=== PATIENT | female | born 1965 | race Caucasian/White ===

== ENCOUNTER 2018-06-06 07:17 | Day surgery (SDC) | payer OTHER ==
[~2018-06-06] VITALS: Ht 167.6 cm; Wt 99.8 kg
[2018-06-06] MEDS ORDERED: LEVSOD125 PO (07:52)
[2018-06-06] MEDS ORDERED: UNISOM25 MG PO (07:53)
[2018-06-06] MEDS ORDERED: ACYC400 PO (07:53)
[2018-06-06] MEDS ORDERED: SERT50 PO (07:53)
[2018-06-06] MEDS ORDERED: LISI20 PO (07:53)
[2018-06-06] MEDS ORDERED: CLOBETASOL PRO0.5 GM MC (07:54)
== END 2018-06-06 09:50 | disposition home or self-care (01) ==
LOC: ORSCSDS 07:17
PROVIDERS: Surgery
PROC: 0DBK8ZX Excision of Ascending Colon, Via Natural or Artificial Opening Endoscopic, Diagnostic (ICD-10-PCS; principal; 2018-06-06 08:30)
DX: Z12.11 Encounter for screening for malignant neoplasm of colon (principal); D12.2 Benign neoplasm of ascending colon; Z86.010 Personal history of colon polyps; Z80.0 Family history of malignant neoplasm of digestive organs; E03.9 Hypothyroidism, unspecified; I10 Essential (primary) hypertension; F32.9 Major depressive disorder, single episode, unspecified; G47.30 Sleep apnea, unspecified; Z79.899 Other long term (current) drug therapy
CPT/HCPCS: 88305; J7120

== ENCOUNTER → 2022-03-25 | Outpatient (CLI) | payer OTHER ==
[~2022-03-25] MED LIST: ACYC400 PO; CLOBETASOL PRO0.5 GM MC; LEVSOD125 PO; LISI20 PO; SERT50 PO; UNISOM25 MG PO
== END | disposition home or self-care (01) ==
LOC: LAB 16:58 → LAB SHORT 16:58
DX: N39.0 Urinary tract infection, site not specified (principal)
CPT/HCPCS: 87086

== ENCOUNTER 2024-11-06 12:57 | Day surgery (SDC) | payer OTHER ==
[2024-11-06] MEDS ORDERED: GLUTATHIONE RE500 MG PO (13:38)
[2024-11-06] MEDS ORDERED: Adipex-P37.5 M1 PO (13:39)
[2024-11-06] MEDS ORDERED: LEVOTHYROXINE200 MCG PO (13:39)
[2024-11-06] MEDS ORDERED: PROG100 PO (13:40)
[2024-11-06] MEDS ORDERED: propofoL 50 ML IV ONE (13:41)
--- NOTE | 2024-11-06 14:19 | NUR ---
11/06/24 1418 MICHAELA LOYA CASE CXD PER AND CAROLANN. D/T CARDIAC NEW BBB. END NOTE RDS
== END 2024-11-06 14:20 | disposition home or self-care (01) ==
LOC: ORSCSDS 12:57
DX: Z80.0 Family history of malignant neoplasm of digestive organs (principal); Z53.9 Procedure and treatment not carried out, unspecified reason
CPT/HCPCS: 93005; 93010; J2704

== ENCOUNTER 2025-05-15 06:41 | Day surgery (SDC) | payer OTHER ==
[~2025-05-15] VITALS: Ht 165.1 cm; Wt 74.9 kg
[~2025-05-15 06:41] MED LIST changes: +ASHWAGANDHA PO; +Adipex-P37.5 M1 PO; +COLLAGEN SKIN1 EACH PO; +CYCL10 PO; +DHEA 2525 MG PO; +DIGESTIVE WELL1 EACH PO; +DIM PO; +FISH OIL 1,0001 EA10 PO; +GALZIN50 MG PO; +GLUTATHIONE RE500 MG PO; +HYDCHL25 PO; +HYDPAM25 PO; +L-Glutamine500 MG PO; +L-THEANINE100 MG PO; +LEVOTHYROXINE200 MCG PO; -LISI20 PO; +LISI5 PO; +MAG GLYCINATE100 MG PO; +NAC600 MG PO; +PAIN RX PO; +PROBIOTIC1 EA13 PO; +PROG100 PO; +SELENIUM200 MC3 PO; +TURMERIC500 M2; +VITAMIN D5000 UNIT PO; +Vitamin B Comple1 EA PO; +Vitamin K100 MCG PO; +[UNRECOGNIZED DRUG - OTHER]; +[UNRECOGNIZED DRUG - OTHER] PO
[2025-05-15 07:12] VITALS: BP 123/67
[2025-05-15] MEDS ORDERED: TURMERIC500 M2 PO (07:14)
--- NOTE | 2025-05-15 07:24 | NUR ---
History, Chart, Medications and Allergies reviewed before start of procedure. Lungs clear T/O to Auscultation. Patient confirms NPO status and agrees with scheduled surgery. Patient states colon prep results clear. Pre-Op teaching done. Pt verbalizes understanding.
[2025-05-15 08:36] VITALS: BP 110/65
[2025-05-15 08:43] VITALS: BP 104/79
[2025-05-15 08:48] VITALS: BP 119/71
--- NOTE | 2025-05-15 08:57 | NUR ---
Patient up to Ambulate independently. Gait steady. Discharge instructions reviewed with patient. Patient verbalizes understanding. Copy given to patient to take home. Discharged via wheelchair to private car for ride home.
--- NOTE | 2025-05-15 09:40 | NUR ---
05/15/25 0940 Drake Martinez History, Chart, Medications and Allergies reviewed before start of procedure. MONITOR INTACT WITH CONTINUOUS PULSE OXIMETRY, CONTINUOUS END TITAL CO2, 3-LEAD EKG AND INTERMITTENT BLOOD PRESSURE. 3-LEAD EKG REVIEWED WITH PHYSICIAN PRIOR TO START OF PROCEDURE. O2 VIA POM INTACT THROUGHOUT SEDATION/PROCEDURE.
== END 2025-05-15 08:59 | disposition home or self-care (01) ==
LOC: ORSCMMR 06:41 → ORD 08:00 → ORSCMMR 08:00
PROVIDERS: Surgery
PROC: 0DJD8ZZ Inspection of Lower Intestinal Tract, Via Natural or Artificial Opening Endoscopic (ICD-10-PCS; principal; 2025-05-15 08:00)
DX: Z12.11 Encounter for screening for malignant neoplasm of colon (principal); Z80.0 Family history of malignant neoplasm of digestive organs; I10 Essential (primary) hypertension; Z86.0100 Personal history of colon polyps, unspecified; G47.33 Obstructive sleep apnea (adult) (pediatric); E07.9 Disorder of thyroid, unspecified; Z79.899 Other long term (current) drug therapy
CPT/HCPCS: J2704; J7120